=== PATIENT | male | born 2000 | race Hispanic/Latino ===

== ENCOUNTER 2021-06-08 06:05 | Emergency (ER) | payer MEDICARE ==
[~2021-06-08] VITALS: Ht 177.8 cm; Wt 82.1 kg
[2021-06-08] MEDS ORDERED: CLONIDINE HCL 0.1 MG TAB PO ONE (06:30)
[2021-06-08] MEDS ORDERED: CLONIDINE HCL 0.1 MG TAB ONE (06:47)
[2021-06-08] MEDS ORDERED: BENZONATATE200 MG PO (06:49)
[2021-06-08] MEDS ORDERED: AZITHROMYCIN250 MG PO (06:49)
[2021-06-08 06:55] VITALS: BP 154/105
== END 2021-06-08 06:58 | disposition home or self-care (01) ==
LOC: FSED 06:26
DX: U07.1 COVID-19 (principal); R05.9 Cough, unspecified; J40 Bronchitis, not specified as acute or chronic; R04.2 Hemoptysis; I12.0 Hypertensive chronic kidney disease with stage 5 chronic kidney disease or end stage renal disease; N18.6 End stage renal disease; Z99.2 Dependence on renal dialysis
CPT/HCPCS: 71046; 99283